=== PATIENT | female | born 1955 | race Caucasian/White ===

== ENCOUNTER 2016-12-26 20:25 | Inpatient (IN) | payer BC ==
[2016-12-26] MEDS ORDERED: LORazepam 2 MG/ML SYRINGE IV STA ×3 (20:29→21:58)
[2016-12-26] MEDS ORDERED: SODIUM CHLORIDE 0.9% 1,000 ML IV STA (20:36)
[2016-12-26] MEDS ORDERED: RX INFO: IV CONTRAST WAS GIVEN 1 EACH MISC MISCELLANE PRN (20:37)
--- NOTE | 2016-12-26 20:37 | ED ---
General Adult HPI - General Stated complaint: seizure, stroke like symptoms Time Seen by Provider: 12/26/16 20:31 Source: RN notes reviewed, old records reviewed - History of Present Illness Initial comments: This is a 52-year-old female here for evaluation of headache. Patient was originally but and called EMS secondary to headache that developed in the arm paralysis. Patient's for strain secondary to clinical status, patient did actively seizing upon arrival to emergency room. Per EMS patient initially was alert and oriented, walking and talking, on no medications unknown of blood thinners but then was found of elevated blood pressure transport, and increasing headache. They state patient began to seize on arrival to emergency room. History is otherwise obtained from EMS and the family - Related Data Home Medications Medication Instructions Recorded Confirmed Aspirin EC [Ecotrin Low Dose] 81 mg PO QAM 12/26/16 12/26/16 Atorvastatin [Lipitor] 80 mg PO QAM 12/26/16 12/26/16 Carvedilol [Coreg] 3.125 mg PO BID 12/26/16 12/26/16 Clopidogrel Bisulfate [Plavix] 75 mg PO QAM 12/26/16 12/26/16 Multivitamins, Thera [Multivitamin] 1 tab PO QAM 12/26/16 12/26/16 Allergies Allergy/AdvReac Type Severity Reaction Status Date / Time No Known Allergies Allergy Verified 12/26/16 20:41 Review of Systems ROS Statement: Those systems with pertinent positive or pertinent negative responses have been documented in the HPI. ROS Other: All systems not noted in ROS Statement are negative. General Exam Limitations: altered mental status General appearance: alert, obtunded, in distress Head exam: Present: atraumatic, normocephalic, normal inspection Eye exam: Present: normal appearance, PERRL. Absent: scleral icterus, conjunctival injection, periorbital swelling ENT exam: Present: normal exam, mucous membranes moist Neck exam: Present: normal inspection. Absent: tenderness, meningismus, lymphadenopathy Respiratory exam: Present: normal lung sounds bilaterally. Absent: respiratory distress, wheezes, rales, rhonchi, stridor Cardiovascular Exam: Present: regular rate, normal rhythm, normal heart sounds. Absent: systolic murmur, diastolic murmur, rubs, gallop, clicks GI/Abdominal exam: Present: soft, normal bowel sounds. Absent: distended, tenderness, guarding, rebound, rigid Extremities exam: Present: normal inspection, full ROM, normal capillary refill. Absent: tenderness, pedal edema, joint swelling, calf tenderness Back exam: Present: normal inspection Neurological exam: Present: alert, oriented X3, CN II-XII intact Psychiatric exam: Present: normal affect, normal mood Skin exam: Present: warm, dry, intact, normal color. Absent: rash Course Vital Signs 12/26/16 12/26/16 12/26/16 20:32 20:47 21:02 Temperature 96.9 F L Pulse Rate 79 80 82 Respiratory 18 18 18 Rate Blood Pressure 160/90 140/65 127/59 O2 Sat by Pulse 100 100 100 Oximetry 12/26/16 12/26/16 21:17 21:32 Temperature Pulse Rate 78 78 Respiratory 18 18 Rate Blood Pressure 125/56 134/64 O2 Sat by Pulse 100 100 Oximetry - Reevaluation(s) Reevaluation #1: 12/26/16 20:38 Patient actively seizing upon admission to emergency room, patient given Ativan to stop seizure, will be started on Dilantin Reevaluation #2: 12/26/16 22:54 Patient seizure took time to stabilize, patient did have CAT scan after stabilized and cold stroke was paged Reevaluation #3: 12/26/16 21:34 Per family patient does have history of left carotid endarterectomy of recent, she suffered TIA versus CVA on Reevaluation #4: 12/26/16 21:34 Medical history does show patient is on Plavix Reevaluation #5: 12/26/16 21:35 Repeat exam and with neurology at bedside, [facility], patient is having shaking of right arm, we to gravity and no prior history of deficit 12/26/16 22:02 Patient is having recurrent seizure-like activity right upper extremity EKG Findings - EKG Comments: EKG Findings:: EKG shows normal sinus rhythm rate of 79, CA 156, QRS 100, QTC 460 Medical Decision Making - Medical Decision Making 52 female the ER for strokelike symptoms, patient appears to be having some partial status right upper extremity secondary to likely recent CVA. Patient will be admitted for neurological evaluation placed on antiepileptics and Ativan for breakthrough, MRI in the morning as well as EEG - Lab Data Result diagrams: 12/26/16 20:38 12/26/16 20:38 Lab Results 12/26/16 12/26/16 12/26/16 Range/Units 20:38 20:38 20:38 WBC 13.5 H (3.8-10.6) k/uL RBC 4.29 (3.80-5.40) m/uL Hgb 12.8 (11.4-16.0) gm/dL Hct 40.1 (34.0-46.0) % MCV 93.5 (80.0-100.0) fL MCH 29.9 (25.0-35.0) pg MCHC 32.0 (31.0-37.0) g/dL RDW 14.3 (11.5-15.5) % Plt Count 463 H (150-450) k/uL Neutrophils % 58 % Lymphocytes % 31 % Monocytes % 7 % Eosinophils % 1 % Basophils % 1 % Neutrophils # 7.8 H (1.3-7.7) k/uL Lymphocytes # 4.2 (1.0-4.8) k/uL Monocytes # 0.9 (0-1.0) k/uL Eosinophils # 0.1 (0-0.7) k/uL Basophils # 0.1 (0-0.2) k/uL Sodium 144 (137-145) mmol/L Potassium 3.7 (3.5-5.1) mmol/L Chloride 106 (98-107) mmol/L Carbon Dioxide 15 L (22-30) mmol/L Anion Gap 23 mmol/L BUN 16 (7-17) mg/dL Creatinine 0.77 (0.52-1.04) mg/dL Est GFR (MDRD) Af Amer >60 (>60 ml/min/1.73 sqM) Est GFR (MDRD) Non-Af >60 (>60 ml/min/1.73 sqM) Glucose 148 H (74-99) mg/dL Plasma Lactic Acid Rodrigo (0.7-2.0) mmol/L Calcium 10.4 H (8.4-10.2) mg/dL Phosphorus 5.9 H (2.5-4.5) mg/dL Magnesium 2.1 (1.6-2.3) mg/dL Total Bilirubin 0.9 (0.2-1.3) mg/dL AST 117 H (14-36) U/L ALT 122 H (9-52) U/L Alkaline Phosphatase 194 H (38-126) U/L Total Creatine Kinase 89 (30-135) U/L CK-MB (CK-2) 2.6 H* (0.0-2.4) ng/mL CK-MB (CK-2) Rel Index 2.9 Troponin I <0.012 (0.000-0.034) ng/mL Total Protein 8.5 H (6.3-8.2) g/dL Albumin 5.1 H (3.5-5.0) g/dL 12/26/16 Range/Units 20:38 WBC (3.8-10.6) k/uL RBC (3.80-5.40) m/uL Hgb (11.4-16.0) gm/dL Hct (34.0-46.0) % MCV (80.0-100.0) fL MCH (25.0-35.0) pg MCHC (31.0-37.0) g/dL RDW (11.5-15.5) % Plt Count (150-450) k/uL Neutrophils % % Lymphocytes % % Monocytes % % Eosinophils % % Basophils % % Neutrophils # (1.3-7.7) k/uL Lymphocytes # (1.0-4.8) k/uL Monocytes # (0-1.0) k/uL Eosinophils # (0-0.7) k/uL Basophils # (0-0.2) k/uL Sodium (137-145) mmol/L Potassium (3.5-5.1) mmol/L Chloride (98-107) mmol/L Carbon Dioxide (22-30) mmol/L Anion Gap mmol/L BUN (7-17) mg/dL Creatinine (0.52-1.04) mg/dL Est GFR (MDRD) Af Amer (>60 ml/min/1.73 sqM) Est GFR (MDRD) Non-Af (>60 ml/min/1.73 sqM) Glucose (74-99) mg/dL Plasma Lactic Acid Rodrigo 11.8 H* (0.7-2.0) mmol/L Calcium (8.4-10.2) mg/dL Phosphorus (2.5-4.5) mg/dL Magnesium (1.6-2.3) mg/dL Total Bilirubin (0.2-1.3) mg/dL AST (14-36) U/L ALT (9-52) U/L Alkaline Phosphatase (38-126) U/L Total Creatine Kinase (30-135) U/L CK-MB (CK-2) (0.0-2.4) ng/mL CK-MB (CK-2) Rel Index Troponin I (0.000-0.034) ng/mL Total Protein (6.3-8.2) g/dL Albumin (3.5-5.0) g/dL - Radiology Data Radiology results: report reviewed (CT , CTA is negative for acute disease), image reviewed Critical Care Time Critical Care Time: Yes Total Critical Care Time: 31 Disposition Clinical Impression: Altered mental status, CVA (cerebral vascular accident), Simple partial seizure disorder, Status epilepticus Disposition: ADMITTED IP TO THIS [facility] Condition: Serious Referrals: None,Stated [Primary Care Provider] - 1-2 days
[2016-12-26 20:55] LABS: Basophils # (A) 0.1 k/uL (0-0.2); Basophils % (A) 1 %; CH 30.2; CHCM 32.5; Eosinophils # (A) 0.1 k/uL (0-0.7); Eosinophils % (A) 1 %; HCT 40.1 % (34.0-46.0); HDW 3.22; HGB 12.8 gm/dL (11.4-16.0); Luc # (Auto) 0.36; Luc % (Auto) 3; Lymphocytes # (A) 4.2 k/uL (1.0-4.8); Lymphocytes % (A) 31 %; MCH 29.9 pg (25.0-35.0); MCV 93.5 fL (80.0-100.0); Mean Platelet Volume 6.8; Monocytes # (A) 0.9 k/uL (0-1.0); Monocytes % (A) 7 %; Neutrophils # (A) 7.8 k/uL (1.3-7.7); Neutrophils % (A) 58 %; RBC 4.29 m/uL (3.80-5.40); RDW 14.3 % (11.5-15.5); WBC 13.5 k/uL (3.8-10.6); WBC (Perox) 13.53
[2016-12-26 21:05] LABS: ALT 122 U/L (9-52); AST 117 U/L (14-36); Alkaline Phosphatase 194 U/L (38-126); Anion Gap 23 mmol/L; Blood Urea Nitrogen 16 mg/dL (7-17); Calcium 10.4 mg/dL (8.4-10.2); Carbon Dioxide 15 mmol/L (22-30); Chloride 106 mmol/L (98-107); Glucose 148 mg/dL (74-99); Magnesium 2.1 mg/dL (1.6-2.3); Non-African American GFR(MDRD) >60 (>60 ml/min/1.73 sqM); Phosphorous 5.9 mg/dL (2.5-4.5); Potassium 3.7 mmol/L (3.5-5.1); Sodium 144 mmol/L (137-145); Total Bilirubin 0.9 mg/dL (0.2-1.3); Total Protein 8.5 g/dL (6.3-8.2)
--- NOTE | 2016-12-26 21:11 | CT ---
EXAMINATION TYPE: CT brain wo con DATE OF EXAM: 12/26/2016 9:00 PM COMPARISON: NONE HISTORY: Postoperative 3 weeks carotid endarterectomy, decreased mental status CT DLP: 1181 mGycm. Automated exposure control for dose reduction was used. FINDINGS: There is no acute intracranial hemorrhage, mass effect, or midline shift identified. The ventricles and sulci are within normal limits in size. The globes are intact and the visualized sinuses are jewel ar. IMPRESSION: No acute intracranial hemorrhage, mass effect, or midline shift is seen.
[2016-12-26 21:19] LABS: Prothrombin Time 10.3 sec (9.0-12.0)
[2016-12-26 21:28] LABS: Creatine Kinase 89 U/L (30-135)
--- NOTE | 2016-12-26 21:32 | CT ---
EXAMINATION TYPE: CT angio head neck DATE OF EXAM: 12/26/2016 9:18 PM COMPARISON: NONE HISTORY: Post OP 3 weeks Carotid endarerectomy. Decreased mental status CT DLP: 267.3 mGycm. Automated exposure control for dose reduction was used. TECHNIQUE: Performed with IV Contrast, patient injected with 65 mL of Omnipaque 350. Multiple 3-D pro jections were obtained from an independent 3-D rendering workstation. FINDINGS: The left carotid stent is tapered in its midsection but appears patent. The left common carotid arter y and internal carotid artery are patent throughout their extent. The right common carotid artery and right ICA are widely patent throughout their extent. The bilateral vertebral arteries are widely pat ent throughout their extent. The intracranial anterior and posterior circulation is widely patent. There are no incidental soft tissue or upper chest findings. No incidental intracranial or extracrani al findings. IMPRESSION: 1. NO DEFINITE ACUTE PROCESS. 2. TAPERED LEFT CAROTID STENT.
[2016-12-26 21:39] LABS: Troponin I <0.012 ng/mL (0.000-0.034)
[2016-12-26 21:45] LABS: Creatine Kinase MB 2.6 ng/mL (0.0-2.4)
[2016-12-26] MEDS ORDERED: ASPIRIN 325 MG TAB PO STA (21:54)
[2016-12-26] MEDS ORDERED: PHENYTOIN SODIUM INJ 1,000 MG in SODIUM CHLORIDE 0.9% 100 ML IVPB STA (21:56)
[2016-12-26] MEDS ORDERED: levETIRAcetam IV 1,500 MG in SALINE 1 100ML.BAG IVPB STA (22:00)
[2016-12-26] MEDS: SODIUM CHLORIDE 0.9% 1,000 ML IV SCH (22:10)
[2016-12-26 22:22] LABS: Partial Thromboplastin Time 21.3 sec (22.0-30.0)
[2016-12-26 23:59] LABS: Appearance,Urine Clear (Clear); Bilirubin,Urine Negative (Negative); Glucose,Urine (UA) Negative (Negative); Ketones,Urine Trace (Negative); Leukocyte Esterase,Urine Negative (Negative); Nitrite,Urine Negative (Negative); Protein,Urine Trace (Negative); Specific Gravity,Urine 1.037 (1.001-1.035); UA Billing (MACRO vs. MICRO) CHEM; Urobilinogen,Urine <2.0 mg/dL (<2.0)
[2016-12-27 00:18] LABS: Glucose,Whole Blood 130 mg/dL (75-99)
[2016-12-27 03:41] VITALS: BMI 21.6
[2016-12-27 06:42] LABS: Basophils % (A) 1 %; CH 30.5; CHCM 33.7; Eosinophils # (A) 0.1 k/uL (0-0.7); Eosinophils % (A) 1 %; HCT 32.4 % (34.0-46.0); HDW 3.18; HGB 10.7 gm/dL (11.4-16.0); Luc # (Auto) 0.09; Luc % (Auto) 2; Lymphocytes # (A) 1.3 k/uL (1.0-4.8); Lymphocytes % (A) 27 %; MCH 29.9 pg (25.0-35.0); MCHC 32.9 g/dL (31.0-37.0); MCV 90.8 fL (80.0-100.0); Monocytes # (A) 0.4 k/uL (0-1.0); Monocytes % (A) 7 %; Neutrophils % (A) 62 %; RBC 3.56 m/uL (3.80-5.40); RDW 14.2 % (11.5-15.5); WBC 4.9 k/uL (3.8-10.6)
[2016-12-27 06:52] LABS: Anion Gap 6 mmol/L; Blood Urea Nitrogen 13 mg/dL (7-17); Carbon Dioxide 24 mmol/L (22-30); Chloride 110 mmol/L (98-107); Glucose 93 mg/dL (74-99); Non-African American GFR(MDRD) >60 (>60 ml/min/1.73 sqM); Phosphorous 4.7 mg/dL (2.5-4.5); Potassium 4.1 mmol/L (3.5-5.1); Sodium 140 mmol/L (137-145)
[2016-12-27 07:56] LABS: Glucose,Whole Blood 149 mg/dL (75-99)
[2016-12-27] MEDS: levETIRAcetam IV 1,000 MG in SALINE 1 100ML.BAG IVPB SCH ×2 (08:19→21:31)
[2016-12-27] MEDS: SODIUM CHLORIDE 0.9% 1,000 ML IV SCH ×2 (08:20→18:42)
[2016-12-27] MEDS ORDERED: PHENYTOIN SODIUM INJ 500 MG in SODIUM CHLORIDE 0.9% 100 ML IVPB SCH (09:00)
--- NOTE | 2016-12-27 11:32 | HP ---
DATE OF ADMISSION: 12/26/2016 PRESENTING COMPLAINT: Shaking on the right side. HISTORY OF PRESENT COMPLAINT: This is a pleasant 61-year-old patient visiting here from [place], [place]. Patient has a known history of coronary artery disease with CABG, hyperlipidemia, hypertension, seizure disorder. Patient had a left carotid stent done about 2 weeks ago. Patient presented here with the right arm getting numb, feeling funny, then the whole of the right side started shaking, became weak. Patient's speech also became affected. Some power has come back on the right side, but is still a bit weak. Patient also is incontinent, does also have the headache. Speech is much better now. Patient did swallow. REVIEW OF SYSTEMS: CONSTITUTIONAL: None. HEENT: Headache. RESPIRATORY: None. CARDIOVASCULAR: None. GASTROINTESTINAL: None. GENITOURINARY: None. MUSCULOSKELETAL: None. DERMATOLOGICAL: Tattoos. HEMATOLOGICAL: None. LYMPHATICS: None. PSYCHIATRY: None. NEUROLOGICAL: As above. Past medical history of coronary artery disease, stroke, hyperlipidemia, hypertension. PAST SURGICAL HISTORY: Coronary artery bypass, orthopedic surgery, left carotid endarterectomy. SOCIAL HISTORY: Lives by herself. Did smoke in the past. FAMILY HISTORY: Reviewed; noncontributory to presentation. HOME MEDICATIONS: 1. Multivitamin 1 tablet a day. 2. Plavix 75 mg a day. 3. Coreg 3.125 p.o. b.i.d. 4. Lipitor 80 mg a day. 5. Aspirin 81 mg a day. ALLERGIES: None. On examination, vital signs on presentation: Temperature 96.9, pulse 79, respiration 18, blood pressure 160/90, pulse ox 100% on nonrebreather. Now down to 96% on room air. GENERAL APPEARANCE: Average build, lying in bed, comfortable. EYES: Pupils equal, conjunctivae normal. HEENT: Oral cavity normal. NECK: JVD not raised. Mass not palpable. Respiratory effort normal. LUNGS: Fair air entry. CARDIOVASCULAR: First and second sounds normal. No edema. ABDOMEN: Soft, nontender. Liver and spleen not palpable. LYMPHATIC: No lymph node palpable in neck or axillae. PSYCHIATRY: Alert and oriented x3. Mood and affect normal. NEUROLOGICAL: Pupils equal. Cranial nerves grossly intact. Power in the right arm is 4/5, power in the right leg is 4/5, reflexes are increased in the right leg. INVESTIGATIONS: White count 4.9, hemoglobin 10.7, potassium 4.1. CT scan of the brain did not show anything acute. CT angio of the brain and neck showed some tapering of the left carotid stent. ASSESSMENT: 1. Acute stroke in the left middle cerebral artery causing right-sided weakness in a right-handed patient and also causing secondary focal seizures. 2. Coronary artery disease with prior history of coronary artery bypass. 3. Hyperlipidemia. 4. Essential hypertension. PLAN: Patient is already on Lipitor, aspirin, and Plavix. Patient is put on Keppra. Neuro checks are in place. Neurology is consulted. Care was discussed with the patient and friends at the bedside. Patient will need an MRI of the brain, that has been ordered and an EEG.
[2016-12-27] MEDS: ENOXAPARIN 40 MG/0.4 ML SYRINGE SQ SCH (11:44)
[2016-12-27] MEDS: CARVEDILOL 3.125 MG TAB PO SCH ×2 (11:44→18:41)
[2016-12-27] MEDS: ATORVASTATIN 80 MG TAB PO SCH (11:44)
[2016-12-27] MEDS: CLOPIDOGREL 75 MG TAB PO SCH (11:44)
[2016-12-27] MEDS: ASPIRIN 81 MG CHEW PO SCH (11:44)
[2016-12-27] MEDS: LORazepam 2 MG/ML SYRINGE IV PRN (11:46)
--- NOTE | 2016-12-27 14:52 | MR ---
EXAMINATION TYPE: MR brain wo/w con DATE OF EXAM: 12/27/2016 2:03 PM COMPARISON: CT brain 12/26/2016 HISTORY: cva CONTRAST: Performed utilizing 12 mL intravenous MultiHance gadolinium contrast. TECHNIQUE: Multiplanar, multiecho imaging on a 3.0 Ursula magnet is performed through the brain. Stud y is performed within 24 hours of arrival to the hospital. The craniovertebral junction is normal. The pituitary is normal. Diffusion-weighted imaging is performed. No abnormal hyperintensity is present to suggest an acute i ntracranial infarct or acute ischemic change. There may be prior subcortical infarct on the left posterior parietal and occipital regions. No abno rmal signal on diffusion is evident within this region. This is readily apparent on the inversion rec overy sequence despite significant motion artifact. Note is made of a few additional punctate areas o f hyperintensity which can be related to chronic microvascular ischemic change. Ventricles and sulci are appropriate for the patient age. Some mild mucosal thickening is within ethmoid air cells. Mild mucosal thickening is within the infer ior frontal sinuses. Mastoid air cells and remaining paranasal sinuses are clear IMPRESSIONS: 1. White matter change within the posterior left parietal and left occipital region can be prior comp atible subcortical infarct. 2. Few scattered chronic appearing white matter ischemic changes. 3. No acute intracranial process evident.
[2016-12-27] MEDS: CYANOCOBALAMIN 500 MCG TAB PO SCH (18:42)
[2016-12-27] MEDS: MULTIVITAMINS, THERA 1 EACH TAB PO SCH (18:42)
--- NOTE | 2016-12-27 19:15 | P.CNNES ---
History of Present Illness Consult date: 12/27/16 Reason for Consult: This patient admitted with focal seizure and right-sided weakness. History of Present Illness: This patient is a 61-year-old right-handed white female who apparently yesterday was at home and suddenly developed some symptoms of weakness followed by spasms of the right arm and leg. Apparently the patient was visiting from [place] and was staying with family and she was noted yesterday to suddenly become very tense in terms of right-sided spasticity. Patient does have a history of 2 previous strokes the most recent of which occurred in October 2016. The strokes did leave her with some right-sided hemiparesis. While at home the family members noted that she seemed to have sudden jerking of the right arm suggesting a seizure. She was brought into the emergency room immediately for further evaluation and was seen in the ER by Dr. Roberts. She was sent for a computed tomography scan of the brain which revealed no acute intracranial findings. There is no evidence of acute stroke or hemorrhage. She apparently had a seizure in the emergency room and was loaded with IV Keppra. Patient was then transferred to the intensive care unit. Since starting the Keppra she has not had further shaking of the right side. The patient continues to have some weakness in the right extremities likely secondary to her old stroke. The patient was sent for MRI of the brain today for further evaluation. MRI reveals evidence of old left parietal and left occipital infarcts. No evidence for acute stroke. The patient also was able to complete a routine EEG today which is reviewed. Her EEG is normal with no evidence of any epileptiform discharges. The patient is currently on Keppra for long-term seizure prophylaxis. Apparently she has been doing better since starting on the Keppra and has not had any further focal seizure activity on the right side. We have reviewed all of the test results today with the patient and several family members in the ICU. All of their questions were answered. We will continue the patient on Keppra at this time and will have physical therapy involved in terms of subacute rehabilitation. The patient continues to show improvement from her initial presentation. She did have a CTA angiogram which did reveal some evidence of carotid stenosis. She has a history of having left carotid stent placement recently performed in [place]. The patient is now resting comfortably in the intensive care unit she is quite alert and oriented. She is noted to have some right-sided weakness. Neurology is now been consulted for further evaluation and recommendations. Review of Systems Constitutional: Denies chills, Denies fever Eyes: denies blurred vision, denies pain Ears, nose, mouth and throat: Denies headache, Denies sore throat Cardiovascular: Denies chest pain, Denies shortness of breath Respiratory: Denies cough Gastrointestinal: Denies abdominal pain, Denies diarrhea, Denies nausea, Denies vomiting Genitourinary: Denies dysuria, Denies hematuria Musculoskeletal: Denies myalgias Integumentary: Denies pruritus, Denies rash Neurological: Reports confusion, Reports lack of coordination, Reports paresthesias, Reports seizures, Denies numbness, Denies weakness Psychiatric: Denies anxiety, Denies depression Endocrine: Denies fatigue, Denies weight change Past Medical History Past Medical History: Coronary Artery Disease (CAD), CVA/TIA, Hyperlipidemia, Hypertension, Seizure Disorder History of Any Multi-Drug Resistant Organisms: None Reported Past Surgical History: Coronary Bypass/CABG, Orthopedic Surgery Additional Past Surgical History / Comment(s): cardotid endartectomy Past Psychological History: No Psychological Hx Reported Smoking Status: Former smoker Past Alcohol Use History: None Reported Past Drug Use History: None Reported Medications and Allergies Home Medications Medication Instructions Recorded Confirmed Type Aspirin EC [Ecotrin Low Dose] 81 mg PO QAM 12/26/16 12/26/16 History Atorvastatin [Lipitor] 80 mg PO QAM 12/26/16 12/26/16 History Carvedilol [Coreg] 3.125 mg PO BID 12/26/16 12/26/16 History Clopidogrel Bisulfate [Plavix] 75 mg PO QAM 12/26/16 12/26/16 History Multivitamins, Thera [Multivitamin] 1 tab PO QAM 12/26/16 12/26/16 History Allergies Allergy/AdvReac Type Severity Reaction Status Date / Time No Known Allergies Allergy Verified 12/26/16 20:41 Physical Examination - Vital Signs Vital Signs: Vital Signs Temp Pulse Pulse Resp BP BP Pulse Ox 12/27/16 13:00 67 11 L 97 12/27/16 12:00 98.3 F 61 69 15 97 12/27/16 11:00 62 14 97 12/27/16 10:00 73 16 96 12/27/16 09:00 97.8 F 60 16 103/58 96 12/27/16 08:00 63 69 12 96 12/27/16 07:00 61 16 96 12/27/16 06:00 22 97 12/27/16 05:00 31 H 147/90 98 12/27/16 04:00 98.2 F 73 13 147/90 97 12/27/16 03:43 69 13 12/27/16 03:00 64 13 96 12/27/16 02:00 70 14 94 L 12/27/16 01:00 98.3 F 66 14 129/66 95 12/26/16 23:42 97.9 F 89 18 123/67 99 12/26/16 22:56 97.4 F L 69 18 101/62 99 12/26/16 22:33 82 156/74 98 12/26/16 22:18 90 166/79 97 12/26/16 22:02 78 18 130/66 99 Intake and Output 12/27/16 12/27/16 12/27/16 06:59 14:59 22:59 Other: Voiding Method Bedpan # Voids 1 Weight 58.9 kg - Constitutional General appearance: cooperative - EENT EENT: PERRL, mucous membranes moist - Respiratory Respiratory: lungs clear, normal breath sounds - Cardiovascular Cardiovascular: regular rate, normal S1, normal S2 Extremities: no peripheral edema bilaterally - Gastrointestinal Gastrointestinal: normoactive bowel sounds - Integumentary Integumentary: normal - Neurologic Cranial nerve examination: PERRL, EOMI, VFF, V1/V2/V3 grossly intact, face symmetric, tongue midline, intact gag reflex, intact corneal reflex, normal palatal elevation Speech examination: intact Sensorimotor examination: intact Motor examination - right side: 3/5: biceps, triceps, wrist flexion, wrist extension, passenger interline clerk, hip flexors, knee extensors, dorsiflexion, toe extension (EHL) , plantarflexion Motor examination - left side: 5/5: biceps, triceps, wrist flexion, wrist extension, passenger interline clerk, hip flexors, knee extensors, dorsiflexion, toe extension (EHL) , plantarflexion Detailed sensory examination: intact Reflex and gait examination: intact Reflexes: 1+: ankle, bicep, knee, tricep - Musculoskeletal Musculoskeletal: no pain - Psychiatric Psychiatric: mood/affect appropriate, cooperative Results - Laboratory Findings CBC and BMP: 12/27/16 06:27 12/27/16 06:27 Abnormal Lab Findings: Abnormal Labs 12/26/16 12/27/16 12/27/16 23:45 00:16 00:30 RBC Hgb Hct Chloride POC Glucose (mg/dL) 130 H Plasma Lactic Acid Rodrigo 0.6 L Phosphorus Ur Specific [place] 1.037 H Urine Protein Trace H Urine Ketones Trace H 12/27/16 12/27/16 12/27/16 06:27 06:27 06:33 RBC 3.56 L Hgb 10.7 L Hct 32.4 L Chloride 110 H POC Glucose (mg/dL) Plasma Lactic Acid Rodrigo 0.6 L Phosphorus 4.7 H Ur Specific [place] Urine Protein Urine Ketones Assessment and Plan (1) Focal motor seizure Status: Acute Code(s): G40.109 - LOCAL-REL SYMPTC EPI W SIMP PRT SEIZ,NOT NTRCT, W/O STAT EPI (2) History of stroke in adulthood Status: Acute Code(s): Z86.73 - PRSNL HX OF TIA (TIA), AND CEREB INFRC W/O RESID DEFICITS (3) Encephalopathy acute Status: Acute Code(s): G93.40 - ENCEPHALOPATHY, UNSPECIFIED (4) Right hemiparesis Status: Acute Code(s): G81.91 - HEMIPLEGIA, UNSPECIFIED AFFECTING RIGHT DOMINANT SIDE Plan: This patient is a 61-year-old female was admitted to hospital yesterday with possible focal motor seizure involving her right arm. Patient was at home and was noted to have shaking of her right arm and was brought immediately to the emergency room. She underwent a computed tomography scan of the brain which was negative for any acute changes. She then had a focal seizure in the emergency room and was loaded with intravenous Keppra. She was admitted to the intensive care unit. She had MRI of the brain today as well as routine EEG results of which are noted above. Patient does have evidence on MRI of old strokes involving the left parietal and occipital lobes. Most likely she may have had a focal motor seizure secondary to scar tissue formation over the left hemisphere. We have recommended the patient be maintained on Keppra at this time. She is advised of the [place] driving law which states she cannot drive for appeared to 6 months following her last seizure. We would recommend switching her to oral Keppra tomorrow for long-term management. We reviewed the EEG which is normal with no evidence of any seizure focus at this time. Patient should be evaluated for physical therapy. We have reviewed all the test results today with the patient and family members in detail at bedside in the intensive care unit. We will continue to follow her progress closely during this admission. Overall prognosis at this time remains guarded. Time with Patient: Greater than 30
[2016-12-27] MEDS ORDERED: ASPIRIN 325 MG TAB PO SCH (21:55)
[2016-12-28 05:50] LABS: Glucose,Whole Blood 78 mg/dL (75-99)
[2016-12-28] MEDS: SODIUM CHLORIDE 0.9% 1,000 ML IV SCH ×3 (06:42→17:14)
[2016-12-28] MEDS: CARVEDILOL 3.125 MG TAB PO SCH ×2 (06:44→17:14)
--- NOTE | 2016-12-28 08:06 | EEG ---
DATE OF SERVICE: 12/27/[address] Heck. INTERPRETING PHYSICIAN: Dr. Derik Roger INDICATIONS FOR EXAMINATION: This patient is a 61-year-old female being evaluated for new onset of tremors involving right arm. Patient with possible focal seizure event. AGE: 61Y EEG FINDINGS: A routine 21-channel, awake digital EEG recording was accomplished utilizing the 10 to 20 international system with bipolar and referential montages. The background activity in the most alert resting state consists of a low to medium amplitude, fairly well-developed and well sustained 7 to 8 Hz activity over the posterior head regions. This posterior rhythm attenuates to eye opening. There is a small amount of low amplitude 18 to 20 Hz beta activity seen maximally over the anterior head regions. Muscle and movement artifact was observed on several occasions during the tracing. Hyperventilation was not performed. Photic stimulation at flash frequencies of 2 to 30 Hz produced a good symmetrical occipital driving response. No epileptiform discharges were seen. IMPRESSION: This EEG is within normal limits for the patient's age. The EEG failed to reveal any focal, lateralized or epileptiform abnormalities. Clinical correlation is recommended.
[2016-12-28] MEDS: CLOPIDOGREL 75 MG TAB PO SCH (08:34)
[2016-12-28] MEDS: ENOXAPARIN 40 MG/0.4 ML SYRINGE SQ SCH (08:34)
[2016-12-28] MEDS: ATORVASTATIN 80 MG TAB PO SCH (08:34)
[2016-12-28] MEDS: ASPIRIN 81 MG CHEW PO SCH (08:34)
[2016-12-28] MEDS: levETIRAcetam IV 1,000 MG in SALINE 1 100ML.BAG IVPB SCH (08:39)
[2016-12-28 12:17] LABS: Glucose,Whole Blood 122 mg/dL (75-99)
[2016-12-28] MEDS: CYANOCOBALAMIN 500 MCG TAB PO SCH (12:52)
[2016-12-28] MEDS: MULTIVITAMINS, THERA 1 EACH TAB PO SCH (12:52)
--- NOTE | 2016-12-28 17:03 | P.PN ---
Subjective This patient is a 61-year-old female who was initially evaluated yesterday in the intensive care unit for possible focal seizure. Patient had spasms in twitching involving her right arm and leg. She underwent a MRI of the brain as well as a routine EEG. These results were reviewed yesterday with the patient in the intensive care unit. MRI of the brain was negative for any evidence of acute stroke. EEG was within normal limits with no evidence of any focal seizure. Patient does have evidence of 2 previous ischemic infarctions involving the left hemisphere of the brain. Her clinical history suggests possibility of a new onset of seizure activity. She is currently on Keppra and her Keppra blood level is pending today. She does seem to be doing better today and was transferred out of the intensive care unit yesterday evening. The patient continues to have abnormal movements involving her right arm. We once again reviewed the results of her MRI and EEG with the patient today in detail. Apparently she does not recollect the results that were given to her yesterday in the intensive care unit. She is complaining of some right-sided neck pain. We have recommended that she undergo an MRI of the cervical spine to rule out any cervical disc disease producing these abnormal movements. Patient underwent a Keppra blood level which is still pending today. She is to continue on her current dose of Keppra. We suggested after 6 months she can be reevaluated for possibility of discontinuation of the anticonvulsant medication at that time pending her progress. Case was discussed today with Dr. Heck. He is in agreement to proceed with MRI of the cervical spine. If her movements of the right arm continue we would recommend that she be referred to a movement disorder clinic for further assessment and treatment. We will need to continue close neurological follow-up the patient during this admission. Objective - Vital Signs Vital signs: Vital Signs Temp 98.2 F 12/28/16 12:00 Pulse 74 12/28/16 12:00 Resp 16 12/28/16 12:00 BP 166/76 12/28/16 12:00 Pulse Ox 98 12/28/16 12:00 Intake & Output 12/27/16 12/28/16 12/28/16 18:59 06:59 18:59 Intake Total 120 Output Total 500 Balance -500 120 Weight 58.6 kg 58.6 kg Intake: Oral 120 Output: Urine 500 Other: Voiding Method Bedpan Bedpan Bedpan # Voids 1 1 1 - Exam Physical examination: PHYSICAL EXAMINATION: Patient is resting comfortably in bed. VITAL SIGNS: Blood pressure is [165/77]. Heart rate is [74]. Respiration is [16] . Temperature is [98.2]. HEENT: Head is atraumatic, neck is supple, there were no carotid bruits. CHEST: Lungs are clear to auscultation and percussion. CARDIAC: S1, S2 normal rate and rhythm. There is no murmur. ABDOMEN: Soft and nontender. Bowel sounds are present. EXTREMITIES: There is no pedal edema. Peripheral pulses are present. Neurological examination: Patient's neurological examination is unchanged from yesterday. She continues to have abnormal movements of the right arm. It is unclear as to the etiology of these movements. The remaining neurological examination is nonfocal today. - Labs CBC & Chem 7: 12/27/16 06:27 12/27/16 06:27 Labs: Abnormal Lab Results - Last 24 Hours (Table) 12/28/16 Range/Units 12:15 POC Glucose (mg/dL) 122 H (75-99) mg/dL Microbiology - Last 24 Hours (Table) 12/26/16 23:45 Urine Culture - Final Urine,Voided Assessment and Plan (1) Focal motor seizure Status: Acute Code(s): G40.109 - LOCAL-REL SYMPTC EPI W SIMP PRT SEIZ,NOT NTRCT, W/O STAT EPI (2) History of stroke in adulthood Status: Acute Code(s): Z86.73 - PRSNL HX OF TIA (TIA), AND CEREB INFRC W/O RESID DEFICITS (3) Encephalopathy acute Status: Acute Code(s): G93.40 - ENCEPHALOPATHY, UNSPECIFIED (4) Right hemiparesis Status: Acute Code(s): G81.91 - HEMIPLEGIA, UNSPECIFIED AFFECTING RIGHT DOMINANT SIDE Plan: This patient is a 61-year-old female who was initially admitted to the intensive care unit yesterday for possible right sided seizure activity. Patient was having abnormal movements as well as tonic-clonic movements in the emergency room yesterday and was evaluated by the ER physicians. She was felt to have seizure and was started on intravenous levetiracetam. She is currently on levetiracetam for seizure prophylaxis. Despite taking the levetiracetam and the patient continues to have abnormal movements of the right arm. These are very atypical movements. She is complaining of right-sided neck pain and we are recommending an MRI of the cervical spine to be done for further evaluation. If the patient continues to have abnormal movements with normal MRI of the C-spine we would recommend further evaluation and a movement disorder clinic. We will continue her on her current dose of Keppra. We are waiting her Keppra blood level to return from the laboratory. Her overall prognosis at this time remains guarded. Case was discussed at length with Dr. Heck. He is in agreement with our current treatment plan. Her overall prognosis at this time remains guarded.
[2016-12-28 17:16] LABS: Glucose,Whole Blood 94 mg/dL (75-99)
--- NOTE | 2016-12-28 18:53 | MR ---
EXAMINATION TYPE: MR cervical spine wo con DATE OF EXAM: 12/28/2016 6:16 PM COMPARISON: NONE HISTORY: Right sided neck pain with abnormal arm movements TECHNIQUE: Multiplanar, multisequence images of the cervical spine were acquired. C2-C3: No evidence for degenerative disc disease. No disc bulge/herniation or protrusion. No Canal stenosis. Foramina are patent bilaterally. C3-C4: Mild left-sided foraminal encroachment is present. Posterior broad-based disc bulge causes mil d anterior mass effect on the thecal sac. On mild central stenosis. C4-C5: Mild to moderate central stenosis is present due to posterior extension of endplate disc compl ex. Foraminal encroachment is present right greater than left. C5-C6: Foraminal encroachment is greater on the right than the left. Moderate central canal stenosis is present, there is posterior extension of endplate disc complex which may contact the anterior cerv ical cord. C6-C7: Circumferential extension of endplate disc complex causes anterior mass effect on the thecal s ac, mild central canal stenosis. C7-T1: No evidence for degenerative disc disease. No disc bulge/herniation or protrusion. No Canal stenosis. Foramina are patent bilaterally. Cervical segments are intact. There is normal alignment. Cervical spinal cord is of normal signal. Craniovertebral junction relationships are within normal limits. There is a marked scoliosis presen t in the thoracic spine, compensatory curve in the cervical spine. Multilevel facet arthropathy, unco vertebral joint hypertrophy facet arthropathy. Cervical vertebral bodies show preserved height. Loss of disc height present especially at C4-5, C5-6 and C6-7, there is endplate discogenic marrow signal change. IMPRESSION: Degenerative disc disease, multilevel foraminal encroachment, spinal stenosis, scoliosis.
--- NOTE | 2016-12-28 20:26 | PN ---
DATE OF SERVICE: 12/28/2016 PRESENTING COMPLAINT: Shaking on the right side. INTERVAL HISTORY: This is a patient with a history of CABG, left carotid stent about 2 weeks ago, presented with right arm getting numb and the whole right side of her shaking. Patient's speech is also affected. Patient has some weakness of the right upper extremity, is still complaining of pain in the right side of the neck. Speech is back to normal. The MRI interestingly did not show anything. Patient's son is at the bedside. Review of systems done for constitutional, cardiovascular, GI, pulmonary; relevant findings as above. Current medications are reviewed that include Keppra. On examination, temperature 98.2, pulse 74, respirations 16, blood pressure 166/76, pulse ox 98% on room air. GENERAL APPEARANCE: Sitting up, comfortable. EYES: Pupils equal. Conjunctivae normal. NECK: JVD not raised. Mass not palpable. RESPIRATORY: Effort normal. LUNGS: Fair air entry. CARDIOVASCULAR: First and second sounds normal. No edema. ABDOMEN: Soft, nontender. Liver and spleen not palpable. PSYCHIATRY: Alert and oriented x3. Mood and affect normal. NEUROLOGICAL: Part of the right arm is still 4/5, right leg 4/5. Reflexes are increased. INVESTIGATIONS: EEG was normal limits. ASSESSMENT: 1. Possible acute stroke in the left middle cerebral artery causing right-sided weakness on the right in patient and also causing secondary focal seizure, though interestingly patient's EEG and MRI are both negative. 2. Coronary artery disease with prior history of coronary artery bypass. 3. Hyperlipidemia. 4. Essential hypertension. 5. Left carotid stent. PLAN: At this point, will switch the patient's Keppra to p.o. I spoke to Dr. Roger. I did suggest getting an MRI of the neck in case there is a local cause, given that she has some pain in the right side of neck. Hence, MRI of the neck will be ordered. At this point it is too early to say this is a central cause, as nothing showing up on the MRI. Continue current medication and treatment plan. Follow.
[2016-12-28] MEDS ORDERED: levETIRAcetam 500 MG TAB PO SCH (21:00)
[2016-12-29] MEDS: CARVEDILOL 3.125 MG TAB PO SCH (06:50)
[2016-12-29] MEDS: ATORVASTATIN 80 MG TAB PO SCH (08:27)
[2016-12-29] MEDS: ASPIRIN 81 MG CHEW PO SCH (08:27)
[2016-12-29] MEDS: CLOPIDOGREL 75 MG TAB PO SCH (08:27)
[2016-12-29] MEDS: ENOXAPARIN 40 MG/0.4 ML SYRINGE SQ SCH (08:27)
[2016-12-29 13:02] LABS: Glucose,Whole Blood 168 mg/dL (75-99)
[2016-12-29] MEDS: LORazepam 2 MG/ML SYRINGE IV PRN ×2 (13:08→13:10)
[2016-12-29] MEDS ORDERED: PROPOFOL 50 ML IV ONE (13:24)
[2016-12-29 13:26] LABS: Glucose,Whole Blood 186 mg/dL (75-99)
--- NOTE | 2016-12-29 13:32 | P.PCN ---
Date of Procedure: 12/29/16 Preoperative Diagnosis: Seizure Postoperative Diagnosis: Hypoxic respiratory failure Procedure(s) Performed: Endo tracheal intubation Anesthesia: MAC Condition: critical Disposition: ICU Indications for Procedure: Airway protection Operative Findings: Was completely lethargic there was no cough or gag reflux on examination. It appeared that patient was also having some oral secretions, not. With concern for airway protection patient was emergently intubated. He was checked. Patient is a full code. Patient was given 60 mg of IV propofol by me. With a Mac 3 blade with direct visualization, a 8 ET tube was inserted a 24 cm at the lip. There was color change on co2 meter. Breath Sounds were equal and that was auscultated. vitals were stable. Patient was given an additional dose of Ativan and 60 mg of propofol for transportation. Triaged to the ICU Consult Dr Alford
[2016-12-29] MEDS ORDERED: PROPOFOL 500 MG in EMPTY BAG 1 BAG IV SCH (14:00)
[2016-12-29 14:18] LABS: Appearance,Urine Clear (Clear); Bilirubin,Urine Negative (Negative); Glucose,Urine (UA) Trace (Negative); Ketones,Urine 1+ (Negative); Leukocyte Esterase,Urine Negative (Negative); Nitrite,Urine Negative (Negative); Protein,Urine Negative (Negative); Specific Gravity,Urine 1.007 (1.001-1.035); UA Billing (MACRO vs. MICRO) CHEM; Urobilinogen,Urine <2.0 mg/dL (<2.0)
[2016-12-29] MEDS: CYANOCOBALAMIN 500 MCG TAB PO SCH (14:37)
[2016-12-29] MEDS: MULTIVITAMINS, THERA 1 EACH TAB PO SCH (14:37)
--- NOTE | 2016-12-29 14:37 | CT ---
EXAMINATION TYPE: CT brain wo con DATE OF EXAM: 12/29/2016 2:21 PM COMPARISON: 12/26/2016 INDICATION: Unresponsive DLP: 1007.5 mGycm, Automated exposure control for dose reduction was used. CONTRAST: None CT of the brain is performed utilizing 3 mm thick sections through the posterior fossa and 3 mm thick sections through the remaining calvarium. Study is performed within 24 hours of arrival to the hosp ital. There is a large intraparenchymal hemorrhage centered within the left basal ganglion. This measures a pproximately 5.5 x 8.5 x 5.6 cm. This may has some extension into the left brain stem and cerebellar peduncle. There is some decompression into the left lateral ventricle. Mass effect is evident. There is a midline shift of 1.4 cm. Some mild surrounding edema is present. There is left ambient cistern e ffacement. Quadrigeminal plate appears patent. There is dilatation of the right temporal horn. Compression of the lateral ventricles is evident. Thi rd ventricle contains hemorrhage. Fourth ventricle appears normal and midline. Report was called to Dr Bishop by Dr. Jordan by telephone 1430 hours 12/29/2016. IMPRESSIONS: 1. Large intraparenchymal hemorrhage which appears to be centered in the left basal ganglion. 2. Midline shift of 1.4 cm. Note is made of ambient cistern effacement at this time. 3. Developing hydrocephalus with rounding of the right temporal horn. 4. Some decompression of the hemorrhage into the lateral ventricle.
[2016-12-29] MEDS: SODIUM CHLORIDE 0.9% 1,000 ML IV SCH ×2 (14:40→14:42)
[2016-12-29] MEDS: LABETALOL 100 MG in SODIUM CHLORIDE 0.9% 80 ML IV SCH ×2 (14:42→15:26)
[2016-12-29 14:47] LABS: Basophils % (A) 0 %; CHCM 35.2; Eosinophils # (A) 0.1 k/uL (0-0.7); Eosinophils % (A) 1 %; HCT 32.9 % (34.0-46.0); HDW 3.33; HGB 11.4 gm/dL (11.4-16.0); Luc # (Auto) 0.12; Luc % (Auto) 1; Lymphocytes % (A) 11 %; MCH 30.8 pg (25.0-35.0); MCHC 34.8 g/dL (31.0-37.0); MCV 88.6 fL (80.0-100.0); Mean Platelet Volume 7.5; Monocytes # (A) 0.4 k/uL (0-1.0); Monocytes % (A) 4 %; Neutrophils # (A) 7.5 k/uL (1.3-7.7); Neutrophils % (A) 82 %; RBC 3.71 m/uL (3.80-5.40); WBC 9.1 k/uL (3.8-10.6); WBC (Perox) 9.36
[2016-12-29 14:48] LABS: ABG Base Excess -4.2 mmol/L; ABG HCO3 19 mmol/L (21-25); ABG PCO2 30 mmHg (35-45); ABG PH 7.43 (7.35-7.45); ABG PO2 >400 mmHg (83-108); ABG TCO2 20 mmol/L (19-24)
[2016-12-29 14:59] VITALS: TEMP 97.5
[2016-12-29 15:02] LABS: INR 1.1 (<1.1); Prothrombin Time 11.2 sec (9.0-12.0)
[2016-12-29] MEDS ORDERED: hydrALAZINE HCL 20 MG/ML 1 ML VIAL IVP PRN (15:02)
[2016-12-29 15:03] LABS: ALT 68 U/L (9-52); AST 36 U/L (14-36); Alkaline Phosphatase 141 U/L (38-126); Anion Gap 13 mmol/L; Blood Urea Nitrogen 9 mg/dL (7-17); Calcium 9.2 mg/dL (8.4-10.2); Carbon Dioxide 21 mmol/L (22-30); Chloride 106 mmol/L (98-107); Glucose 188 mg/dL (74-99); Magnesium 1.7 mg/dL (1.6-2.3); Non-African American GFR(MDRD) >60 (>60 ml/min/1.73 sqM); Potassium 3.9 mmol/L (3.5-5.1); Sodium 140 mmol/L (137-145); Total Bilirubin 0.9 mg/dL (0.2-1.3); Total Protein 6.8 g/dL (6.3-8.2)
[2016-12-29 15:04] LABS: Partial Thromboplastin Time 20.9 sec (22.0-30.0)
--- NOTE | 2016-12-29 15:12 | P.DS ---
Providers Date of admission: 12/26/16 21:55 Attending physician: Navjot Heck Consults: 12/29/16 09:30 Consult Physician Routine Consulting Provider: Marichuy Collins Consult Reason/Comments: cervical spondylosis and rightt arm weakness Do you want consulting provider notified?: Yes 12/29/16 13:43 Consult Physician Stat Consulting Provider: Brock Alford Consult Reason/Comments: ICU managment Do you want consulting provider notified?: Yes Primary care physician: Stated None Hospital Course: [age]-old female that came in to the hospital with the some right-sided weakness. Patient underwent a MRI initially with suspicion for an ischemic stroke. Patient's MRI noted a prior left parietal subcortical infarct. However he was noted to be somewhat of a subacute to chronic iN timeline. Patient was thereafter noted to have continuing right-sided weakness. However this was stable. On the day of my evaluation patient was lethargic last known normal was 20 minutes prior to that by one of her family members. Patient was not responding to verbal stimuli. And was not protecting her airway patient's blood pressure was elevated to 190 systolic or 100 diastolic. I emergently intubated the patient at bedside and his blood pressure thereafter was 185/100. Patient was given 20 of hydralazine and was started on a labetalol drip. Computed tomography scan was done which showed a 1.4 cm intraparenchymal bleed in the left hemisphere. Examination No unequal pupils were seen during my evaluation Patient does not respond to verbal or painful stimuli. Lungs good air movement no crackles or wheezing Heart S1-S2 heard no murmurs appreciated Diagnosis Large left-sided intraparenchymal bleed. Accelerated hypertension History of CAD status post CABG Left-sided carotid stenosis Plan be emergently transferred to [facility]. Will be given 1 dose of 50 g mannitol and 2 50 mL bolus 3% hypertonic saline Patient's blood pressure will be titrated with labetalol and nicardipine will be added if patient's blood pressure is resistant. I did discuss the above findings and the plan with the family as well. Prognosis poor Patient Condition at Discharge: Serious Plan - Discharge Summary Discharge Medication List Aspirin EC [Ecotrin Low Dose] 81 mg PO QAM 12/26/16 [History] Atorvastatin [Lipitor] 80 mg PO QAM 12/26/16 [History] Carvedilol [Coreg] 3.125 mg PO BID 12/26/16 [History] Clopidogrel Bisulfate [Plavix] 75 mg PO QAM 12/26/16 [History] Multivitamins, Thera [Multivitamin] 1 tab PO QAM 12/26/16 [History] Follow up Appointment(s)/Referral(s): None,Stated [Primary Care Provider] - 1-2 days
--- NOTE | 2016-12-29 15:27 | XR ---
EXAMINATION TYPE: XR chest 1V DATE OF EXAM: 12/29/2016 3:18 PM COMPARISON: NONE INDICATION: Intubation, difficulty breathing TECHNIQUE: Single frontal view of the chest is obtained. FINDINGS: The heart size is normal. The pulmonary vasculature is normal. The lungs are clear. Sternotomy wires are present from previous CABG An endotracheal tube is in place the tip 2.4 cm above the patricio. IMPRESSION: 1. No acute pulmonary process. 2. Endotracheal tube tip above patricio.
[2016-12-29] MEDS ORDERED: MANNITOL IV ONE (15:30)
[2016-12-29] MEDS ORDERED: SALINE IV ONE (15:30)
[2016-12-29] MEDS ORDERED: LABETALOL 200 MG in SODIUM CHLORIDE 0.9% 160 ML IV SCH (15:31)
[2016-12-29] MEDS ORDERED: SODIUM CHLORIDE 3% IV ONE (16:00)
[2016-12-29] MEDS ORDERED: [UNRECOGNIZED DRUG - OTHER] IV ONE (16:00)
[2016-12-29 16:14] VITALS: BP 147/55; PULSE 51; RESP 16
[2016-12-29] MEDS ORDERED: CHLORHEXIDINE GLUCONATE 15 ML CUP MUCOUS MEM SCH (21:00)
[2016-12-30] MEDS ORDERED: PANTOPRAZOLE 40 MG/10 ML VIAL IV SCH (09:00)
== END 2016-12-29 17:19 | disposition short-term general hospital (02) | DRG 64 ==
LOC: EC 20:25 → 6SEL 21:55 → 6ICU 23:31 → 6SEL 12-27 21:49 → 6ICU 12-29 13:14
PROVIDERS: ADMIT Hospitalist; ATTEND Hospitalist
PROC: 5A1935Z Respiratory Ventilation, Less than 24 Consecutive Hours (ICD-10-PCS; principal; 2016-12-29)
PROC: 0BH17EZ Insertion of Endotracheal Airway into Trachea, Via Natural or Artificial Opening (ICD-10-PCS; 2016-12-29)
DX: I63.9 Cerebral infarction, unspecified (principal); I61.9 Nontraumatic intracerebral hemorrhage, unspecified; J96.91 Respiratory failure, unspecified with hypoxia; G93.40 Encephalopathy, unspecified; G81.91 Hemiplegia, unspecified affecting right dominant side; I69.951 Hemiplegia and hemiparesis following unspecified cerebrovascular disease affecting right dominant side; E78.5 Hyperlipidemia, unspecified; G40.901 Epilepsy, unspecified, not intractable, with status epilepticus; I10 Essential (primary) hypertension; I25.10 Atherosclerotic heart disease of native coronary artery without angina pectoris; R32 Unspecified urinary incontinence; M54.2 Cervicalgia; I65.22 Occlusion and stenosis of left carotid artery; Z87.891 Personal history of nicotine dependence; Z79.02 Long term (current) use of antithrombotics/antiplatelets; Z79.82 Long term (current) use of aspirin; Z79.899 Other long term (current) drug therapy; Z95.1 Presence of aortocoronary bypass graft
CPT/HCPCS: 36415; 36600; 70450; 70496; 70498; 70553; 71010; 72141; 80048; 80053; 80177; 81003; 82550; 82553; 82805; 83605; 83735; 84100; 84484; 85025; 85610; 85730; 86850; 86900; 86901; 87086; 93005; 94002; 94770; 95819; 96361; 96374; 96376; 99291